=== PATIENT | female | born 1995 | race Caucasian/White ===

== ENCOUNTER 2021-06-30 13:54 | Inpatient (IN) ==
[2021-06-30] MEDS ORDERED: AMPICILLIN/SULBACTAM SOD 3,000 MG in 0.9 % SODIUM CHLORIDE 100 ML IV STA (17:18)
[2021-06-30] MEDS ORDERED: dexAMETHasone**PF** 10 MG/ML VIAL IV ONE (17:18)
[2021-06-30] MEDS ORDERED: KETOROLAC TROMETHAMINE 15 MG/ML VIAL IV ONE (17:21)
--- NOTE | 2021-06-30 17:21 | Emergency Department Note ---
Impression & Plan Ludwigs angina, Sublingual abscess ED Provider Note NAME: MELANIA [id number] MOO AGE: 25 SEX: F : 1995 ARRIVES VIA: Walk-In INFORMANT: Patient ED PROVIDER(S): Jose Pool DO CHIEF COMPLAINT: Swelling under tongue HPI: Patient is a 25-year-old female who presents to the ER for swelling under the tongue. This started in the past 24 hours. She notes she has had this multiple times before in the past and had multiple surgeries. She denies any headache or change in vision. No chest pain or shortness of breath. She has not eaten or drank since yesterday due to the pain. No fevers. No belly pain nausea vomiting or diarrhea. No chest pain or shortness of breath. No other exacerbating or remitting factors. ROS: See above HPI for pertinent positives & negatives. A total of 10 systems reviewed and were otherwise negative. PAST MEDICAL HISTORY:See Below PAST SURGICAL HISTORY:See Below FAMILY HISTORY:See Below SOCIAL HISTORY:See Below HOME MEDICATIONS:See Below ALLERGIES:See Below VITALS:See Below PHYSICAL EXAMINATION: GENERAL: Sitting up in bed, alert, well appearing, well nourished, no distress, non-toxic EYE EXAM: normal conjunctiva. OROPHARYNX: mucous membranes are moist. Firmness under the tongue with acute tenderness under the tongue with fullness. Tenderness over the anterior neck with fullness but no erythema. Skin is intact. NECK: supple, no nuchal rigidity, no adenopathy, non-tender LUNGS: Clear to auscultation. Normal chest wall mechanics HEART: no murmurs, S1 normal and S2 normal ABDOMEN: abdomen soft, non-tender, normo-active bowel sounds, no masses, no rebound or guarding. UPPER EXTREMITIES: upper extremities are grossly normal. LOWER EXTREMITIES: No pitting edema. NEURO EXAM: Normal sensorium, cranial nerves II-XII grossly intact, normal speech, no gross weakness of arms, no gross weakness of legs. MEDICAL DECISION MAKING: Patient is a 25-year-old female who presents the ER for swelling under her throat. IV was established blood work was obtained. Labs show mild to 11,000 no significant knee. BMP with elevated right. CT of the neck was performed and showed Rolando's angina with an abscess and swelling in the neck. ENT was called emergently. Patient was given IV Unasyn and steroids. She was updated bedside. Rapid Covid was obtained. Patient was seen and evaluated by both Dr. Castillo and Dr. Rowland at bedside. Patient was taken emergently to the OR. Did discuss with the hospitalist per ENTs request to admit to them following the OR for the [facility]'s. Triage Nursing notes reviewed. Limited review of prior medical records performed Vital Signs: reviewed and remarkable for no significant abnormalities Differential diagnosis: Viral syndrome, tonsillitis, streptococcal pharyngitis, mononucleosis, perito nsillar abscess, retropharyngeal abscess, otitis, pneumonia, influenza, as well as other pathologies. ER treatment provided: See below Diagnostics interpreted by me: ECG: none Cardiac Monitoring: An order was placed for continuous cardiac monitoring. The monitor shows a rate of 92 with sinus rhythm. Laboratory studies: As stated above and show below. Imaging studies: CT of the neck as discussed above Consultation(s): As discussed above Procedures: none Critical Care: I have personally spent 32 minutes of critical care time in the direct management of this patient. This includes bedside care, interpretation of diagnostic studies, and testing, discussion with consultants, patient, and family members, and other required patient management activities. This 32 minutes is in excess of all separately billable procedures. Past Med/Surg History Social History Smoking Status: Former smoker Preferred Language: Hungarian Feels Safe at Home: Yes Allergies Allergies Allergy/AdvReac Type Severity Reaction Status Date / Time No Known Allergies Allergy Unverified 06/30/21 17:33 Home Meds Home Medications Medication Instructions Recorded Confirmed nqecjoe-peotizhzwqvqv-smgsxdvt 250 2 tab PO DAILY 06/30/21 06/30/21 mg-250 mg-65 mg tablet (Excedrin Extra Strength) calcium polycarbophil 625 mg 625 mg PO BID 06/30/21 06/30/21 tablet (FiberCon) guanfacine 1 mg tablet,extended 1 mg PO HS 06/30/21 06/30/21 release 24 hr (Intuniv ER) levalbuterol tartrate 45 2 inh INHALATION QID PRN 06/30/21 06/30/21 mcg/actuation aerosol inhaler (Xopenex HFA) mirtazapine 15 mg tablet 15 mg PO HS 06/30/21 06/30/21 pantoprazole 40 mg tablet,delayed 40 mg PO DAILY 06/30/21 06/30/21 release sertraline 50 mg tablet 50 mg PO DAILY 06/30/21 06/30/21 tissue resp fact-shark ryan oil 1 ea [place] BID 06/30/21 06/30/21 rectal ointment (Hemorrhoidal) topiramate 50 mg tablet (Topamax) 50 mg PO BID 06/30/21 06/30/21 Results & Data (ED) Vital Signs Vital Signs - 24 hr 06/30/21 14:08 06/30/21 17:18 06/30/21 18:00 Temperature 36.4 C L Temperature Source Temporal Artery Scan Pulse Rate 96 H Pulse Rate [Left] 72 Pulse Rhythm Regular Pulse Rhythm [Left] Regular Pulse Strength Normal Pulse Strength [Left] Normal Respiratory Rate 20 18 Respiratory Effort / Characteristics Non-Labored Non-Labored Respiratory Depth Normal Normal Respiratory Pattern Regular Regular Blood Pressure [Right Arm] 121/88 Blood Pressure Mean [Right Arm] 99 Blood Pressure Position Sitting Blood Pressure Position [Right Arm] Lying Pulse Oximetry 99 99 99 Oxygen Delivery Method Room Air Room Air Room Air Sepsis Recent Fever Within 48 Hours No Sepsis New/Unexplained Change in Mental Status N/A Sepsis Action Taken by Nursing No Action Required 06/30/21 20:00 06/30/21 22:00 06/30/21 22:27 Temperature Temperature Source Pulse Rate Pulse Rate [Left] 100 H 101 H 97 H Pulse Rhythm Pulse Rhythm [Left] Regular Regular Regular Pulse Strength Pulse Strength [Left] Normal Normal Normal Respiratory Rate 18 17 19 Respiratory Effort / Characteristics Non-Labored Non-Labored Non-Labored Respiratory Depth Normal Normal Normal Respiratory Pattern Regular Regular Regular Blood Pressure [Right Arm] 125/92 118/74 126/74 Blood Pressure Mean [Right Arm] 103 88 91 Blood Pressure Position Blood Pressure Position [Right Arm] Lying Lying Lying Pulse Oximetry 99 99 99 Oxygen Delivery Method Room Air Room Air Room Air Sepsis Recent Fever Within 48 Hours Sepsis New/Unexplained Change in Mental Status Sepsis Action Taken by Nursing Laboratory Data Result diagrams: 06/30/21 Unknown 06/30/21 Unknown Lab Results 06/30/21 06/30/21 06/30/21 Range/Units 18:04 20:32 20:32 WBC (4.8-10.8) K/uL RBC (4.2-5.4) M/uL Hgb (12.0-16.0) g/dL POC Hgb 13.3 (12.0-16.0) g/dl Hct (37-47) % POC Hct 39 (37-47) % MCV (80-100) fL MCH (25-34) pg MCHC (32-36) g/dL RDW Std Deviation (36.4-46.3) fL RDW Coeff of Fany (11.5-14.5) % Plt Count (130-400) K/uL MPV (7.4-10.4) fL Immature Gran % (Auto) % Neut % (Auto) % Lymph % (Auto) % Bleckley % (Auto) % Eos % (Auto) % Baso % (Auto) % Neut # (Auto) (1.4-6.5) K/uL Lymph # (Auto) (1.2-3.4) K/uL Bleckley # (Auto) (0.11-0.59) K/uL Eos # (Auto) (0-0.5) K/uL Baso # (Auto) (0-0.2) K/uL Immature Gran # (Auto) (0.00-0.02) K/uL POC Sodium 139 (135-144) mmol/L Sodium (136-145) mmol/L POC Potassium 4.5 (3.3-5.0) mmol/L Potassium (3.5-5.1) mmol/L POC Chloride 106 (101-112) mmol/L Chloride (98-107) mmol/L Carbon Dioxide (21-32) mmol/L POC Total CO2 21 L (24-31) mmol/L Anion Gap (3-11) POC Anion Gap 18.0 (16-25) mmol/L POC BUN 14 (7-18) mg/dl BUN (7-18) mg/dl Creatinine (0.6-1.2) mg/dl POC Creatinine 0.6 (0.6-1.3) mg/dl Est Cr Clr Drug Dosing ml/min Est GFR ( Amer) ml/min Est GFR (Non-Af Amer) ml/min BUN/Creatinine Ratio (10-20) Glucose (70-99) mg/dl POC Glucose (other) 90 (70-99) mg/dl Calcium (8.5-10.1) mg/dl POC Ioniz Calcium Dana 1.26 (1.12-1.32) mmol/l COVID-19 Eval Order Covid19 at [facility] SARS-CoV-2 (PCR) NEGATIVE (Negative) 06/30/21 06/30/21 Range/Units Unknown Unknown WBC 11.74 H (4.8-10.8) K/uL RBC 4.39 (4.2-5.4) M/uL Hgb 13.1 (12.0-16.0) g/dL POC Hgb (12.0-16.0) g/dl Hct 39.2 (37-47) % POC Hct (37-47) % MCV 89.3 (80-100) fL MCH 29.8 (25-34) pg MCHC 33.4 (32-36) g/dL RDW Std Deviation 44.2 (36.4-46.3) fL RDW Coeff of Fany 13.4 (11.5-14.5) % Plt Count 301 (130-400) K/uL MPV 9.6 (7.4-10.4) fL Immature Gran % (Auto) 0.3 % Neut % (Auto) 55.9 % Lymph % (Auto) 35.2 % Bleckley % (Auto) 7.6 % Eos % (Auto) 0.8 % Baso % (Auto) 0.2 % Neut # (Auto) 6.58 H (1.4-6.5) K/uL Lymph # (Auto) 4.13 H (1.2-3.4) K/uL Bleckley # (Auto) 0.89 H (0.11-0.59) K/uL Eos # (Auto) 0.09 (0-0.5) K/uL Baso # (Auto) 0.02 (0-0.2) K/uL Immature Gran # (Auto) 0.03 H (0.00-0.02) K/uL POC Sodium (135-144) mmol/L Sodium 139 (136-145) mmol/L POC Potassium (3.3-5.0) mmol/L Potassium 4.4 (3.5-5.1) mmol/L POC Chloride (101-112) mmol/L Chloride 108 H (98-107) mmol/L Carbon Dioxide 25 (21-32) mmol/L POC Total CO2 (24-31) mmol/L Anion Gap 6.0 (3-11) POC Anion Gap (16-25) mmol/L POC BUN (7-18) mg/dl BUN 15 (7-18) mg/dl Creatinine 0.73 (0.6-1.2) mg/dl POC Creatinine (0.6-1.3) mg/dl Est Cr Clr Drug Dosing 140.8 ml/min Est GFR ( Amer) 133.6 ml/min Est GFR (Non-Af Amer) 115.3 ml/min BUN/Creatinine Ratio 20.1 H (10-20) Glucose 88 (70-99) mg/dl POC Glucose (other) (70-99) mg/dl Calcium 9.6 (8.5-10.1) mg/dl POC Ioniz Calcium Dana (1.12-1.32) mmol/l COVID-19 Eval Order SARS-CoV-2 (PCR) (Negative) Administered Medications Discontinued Medications Dexamethasone Sodium Phosphate (DexamethasonePf 10 Mg/Ml Vial) 10 mg IV NOW ONE Stop: 06/30/21 17:19 Last Admin: 06/30/21 18:04 Dose: 10 mg Documented by: [id number] Ampicillin Sodium/Sulbactam Sodium 3,000 mg/ Sodium Chloride 108 mls @ 200 mls/hr IV NOW STA; Protocol Stop: 06/30/21 17:50 Last Infusion: 06/30/21 18:56 Dose: 0 mls/hr Documented by: [id number] Admin: 06/30/21 18:03 Dose: 200 mls/hr Documented by: [id number] Ioversol (Optiray 320 100ml) 94 ml IV ONCE ONE Stop: 06/30/21 18:57 Last Admin: 06/30/21 18:56 Dose: 94 ml Documented by: [id number] Ketorolac Tromethamine (Ketorolac Tromethamine 15 Mg/Ml Vial) 15 mg IV NOW ONE Stop: 06/30/21 17:22 Last Admin: 06/30/21 18:04 Dose: 15 mg Documented by: [id number] Imaging Data Radiologist's Impression: Soft Tissue Neck CT 06/30/21 17:18 CT soft tissue neck w con Clinical Indication: MN ^LABS B4 ^swelling under tongue trouble swallowing. Technique: Axial CT images of the soft tissues of the neck were obtained following intravenous administration of 100 cc of Omnipaque 300. Automated dose lowering techniques and/or adjustment according to patient size were utilized for this exam. Comparison: None available at the time of this dictation. Findings: There is a midline hypodensity below the tongue measuring 19 x 9 x 17 centimeters with rim enhancement. Multiple enlarged lymph nodes are seen, largest measuring 12 mm in short axis on the left in the submandibular region, and 10 mm on the right, also in the submandibular region. A submental lymph node measures 7 mm. Prominent lymph nodes are noted in the cervical chain measuring up to 10 mm in short axis. The parotid glands, submandibular glands, and thyroid gland are unremarkable. The oropharynx, hypopharynx, larynx, and trachea are patent. Imaged portions of the brain parenchyma are unremarkable. The paranasal sinuses and mastoid air cells are normal in appearance. Impression: Findings are concerning for an abscess or developing abscess in the sublingual space (Anthony angina). Lymphadenopathy is seen which is likely reactive. ACT 112: Positive. There are findings on this exam that require communication between the performing entity and the patient following Patient Test Result Information Act ([place] Act 112) guidelines. Electronically signed by: Paul Dorman M.D. 06/30/2021 8:06 PM Discharge Plan Visit Data Chief Complaint: Infection Stated Complaint: SUBLINGUAL ABSCESS ED Provider: Jose Pool Discharge Problem: Ludwigs angina, Sublingual abscess
[2021-06-30 18:17] LABS: iSTAT Creatinine 0.6 mg/dl (0.6-1.3); iSTAT Hemoglobin 13.3 g/dl (12.0-16.0); iSTAT Ionized Calcium 1.26 mmol/l (1.12-1.32); iSTAT Potassium 4.5 mmol/L (3.3-5.0)
[2021-06-30 18:21] LABS: Basophils # (auto) 0.02 K/uL (0-0.2); Basophils % (auto) 0.2 %; Eosinophils # (auto) 0.09 K/uL (0-0.5); Eosinophils % (auto) 0.8 %; Hematocrit (blood only) 39.2 % (37-47); Hemoglobin 13.1 g/dL (12.0-16.0); Immature Granulocytes # (auto) 0.03 K/uL (0.00-0.02); Immature Granulocytes % (auto) 0.3 %; Lymphocytes # (auto) 4.13 K/uL (1.2-3.4); Lymphocytes % (auto) 35.2 %; Mean Corpuscular Hemoglobin 29.8 pg (25-34); Mean Corpuscular Hgb Conc 33.4 g/dL (32-36); Mean Corpuscular Volume 89.3 fL (80-100); Mean Platelet Volume 9.6 fL (7.4-10.4); Monocytes # (auto) 0.89 K/uL (0.11-0.59); Monocytes % (auto) 7.6 %; Neutrophils # (auto) 6.58 K/uL (1.4-6.5); Neutrophils % (auto) 55.9 %; Platelet Count 301 K/uL (130-400); RDW Coefficient of Variation 13.4 % (11.5-14.5); RDW Standard Deviation 44.2 fL (36.4-46.3); Red Blood Count 4.39 M/uL (4.2-5.4); White Blood Count 11.74 K/uL (4.8-10.8)
[2021-06-30 18:40] LABS: BUN Creatinine Ratio 20.1 (10-20); Calcium 9.6 mg/dl (8.5-10.1); Creatinine Clr Calc Pharmacy 140.8 ml/min; Est GFR (African American) 133.6 ml/min; Est GFR (Non-African American) 115.3 ml/min; Potassium 4.4 mmol/L (3.5-5.1)
[2021-06-30] MEDS ORDERED: OPTIRAY 320 100ml IV ONE (18:56)
--- NOTE | 2021-06-30 20:07 | CT Scan Report ---
CT soft tissue neck w con Clinical Indication: MN ^LABS B4 ^swelling under tongue trouble swallowing. Technique: Axial CT images of the soft tissues of the neck were obtained following intravenous admini stration of 100 cc of Omnipaque 300. Automated dose lowering techniques and/or adjustment according t o patient size were utilized for this exam. Comparison: None available at the time of this dictation. Findings: There is a midline hypodensity below the tongue measuring 19 x 9 x 17 centimeters with rim enhancemen t. Multiple enlarged lymph nodes are seen, largest measuring 12 mm in short axis on the left in the s ubmandibular region, and 10 mm on the right, also in the submandibular region. A submental lymph node measures 7 mm. Prominent lymph nodes are noted in the cervical chain measuring up to 10 mm in short axis. The parotid glands, submandibular glands, and thyroid gland are unremarkable. The oropharynx, hypopharynx, larynx, and trachea are patent. Imaged portions of the brain parenchyma are unremarkable. The paranasal sinuses and mastoid air cell s are normal in appearance. Impression: Findings are concerning for an abscess or developing abscess in the sublingual space (Anthony angina). Lymphadenopathy is seen which is likely reactive. ACT 112: Positive. There are findings on this exam that require communication between the performing entity and the patient following Patient Test Result Information Act ([place] Act 112) guidelines. Electronically signed by: Paul Dorman M.D. 06/30/2021 8:06 PM
--- NOTE | 2021-06-30 21:50 | Anesthesiology Consultation ---
Date of Service June 30, 2021 History Height/Weight Height: 4 ft 11 in Weight: 122.9 kg Allergies Allergy/AdvReac Type Severity Reaction Status Date / Time No Known Allergies Allergy Unverified 06/30/21 17:33 Medications Home Medications Medication Instructions Recorded Confirmed Last Taken psnzfna-aeuqizqyemrko-gjywssyp 250 2 tab PO DAILY 06/30/21 06/30/21 Unknown mg-250 mg-65 mg tablet (Excedrin Extra Strength) calcium polycarbophil 625 mg 625 mg PO BID 06/30/21 06/30/21 Unknown tablet (FiberCon) guanfacine 1 mg tablet,extended 1 mg PO HS 06/30/21 06/30/21 06/29/21 20:00 release 24 hr (Intuniv ER) levalbuterol tartrate 45 2 inh INHALATION QID PRN 06/30/21 06/30/21 Unknown mcg/actuation aerosol inhaler (Xopenex HFA) mirtazapine 15 mg tablet 15 mg PO HS 06/30/21 06/30/21 06/29/21 20:00 pantoprazole 40 mg tablet,delayed 40 mg PO DAILY 06/30/21 06/30/21 Unknown release sertraline 50 mg tablet 50 mg PO DAILY 06/30/21 06/30/21 06/30/21 08:00 tissue resp fact-shark ryan oil 1 ea [place] BID 06/30/21 06/30/21 Unknown rectal ointment (Hemorrhoidal) topiramate 50 mg tablet (Topamax) 50 mg PO BID 06/30/21 06/30/21 06/30/21 08:00 Past Surgical History per record - hx of prior oral surgery for mouth infections Social History Smoking Status: Former smoker Physical Exam Vital Signs Last Vital Signs Temp 36.4 C L 06/30/21 14:08 Pulse 100 H 06/30/21 20:00 Resp 18 06/30/21 20:00 BP 125/92 06/30/21 20:00 Pulse Ox 99 06/30/21 20:00 Testing Laboratory Results 06/30/21 Unknown 06/30/21 Unknown 06/30/21 18:04 POC Glucose (other) 90
--- NOTE | 2021-06-30 22:09 | ENT Consultation ---
Date of Consultation June 30, 2021 Assessment & Plan (1) Sublingual abscess: (2) Ludwigs angina: The patient has a history of previous recurrent sublingual abscesses now presenting with small sublingual abscess and early Anthony's angina. No airway compromise. -To OR for I+D, plan extraoral with possible intraoral approach. Will send OR cultures -Unasyn -Decadron 10mg Q8H x3 doses -OK for PO after OR -To be admitted to hospitalist service postoperatively History of Present Illness History of Present Illness 25yF h/o multiple sublingual abscesses requiring I+D x11 (both intra and extraoral) presenting with tenderness and swelling under tongue. Began yesterday, progressed today. Mild dysarthria, odynophagia. No voice change, dyspnea, stridor. Last episode was 04/2020. In ED stable on RA. WBC 12. CT neck per my read shows a small rim enhancing fluid collection in the midline sublingual space with likely reactive bilateral cervical adenopathy. Also small R submandibular stone PMH: migraine, GERD PSH: as above Meds: reviewed, see below All: NKDA FH: noncontributory SH: resides in longterm currently Allergies Allergy/AdvReac Type Severity Reaction Status Date / Time No Known Allergies Allergy Unverified 06/30/21 17:33 Home Medications Medication Instructions Recorded Confirmed Type pgnqdzo-ssxbytibthfca-jqmoxvke 250 2 tab PO DAILY 06/30/21 06/30/21 History mg-250 mg-65 mg tablet (Excedrin Extra Strength) calcium polycarbophil 625 mg 625 mg PO BID 06/30/21 06/30/21 History tablet (FiberCon) guanfacine 1 mg tablet,extended 1 mg PO HS 06/30/21 06/30/21 History release 24 hr (Intuniv ER) levalbuterol tartrate 45 2 inh INHALATION QID PRN 06/30/21 06/30/21 History mcg/actuation aerosol inhaler (Xopenex HFA) mirtazapine 15 mg tablet 15 mg PO HS 06/30/21 06/30/21 History pantoprazole 40 mg tablet,delayed 40 mg PO DAILY 06/30/21 06/30/21 History release sertraline 50 mg tablet 50 mg PO DAILY 06/30/21 06/30/21 History tissue resp fact-shark ryan oil 1 ea [place] BID 06/30/21 06/30/21 History rectal ointment (Hemorrhoidal) topiramate 50 mg tablet (Topamax) 50 mg PO BID 06/30/21 06/30/21 History Patient History Social History Smoking Status: Former smoker Preferred Language: Cymraes Feels Safe at Home: Yes Physical Exam Physical Exam: General: The patient is well-developed, well-nourished, and in no acute distress. Obese. On RA, SaO2 99% Head and Face: Skull: No obvious deformities Sinus tenderness: There is no tenderness to palpation of the sinuses. Salivary glands: The parotid and submandibular glands are normal in appearance and there are no masses on palpation. Facial strength: Facial motion is symmetric and without weakness. Eyes: Eyelids: There is no periorbital edema. Conjunctiva: There is no conjunctival erythema. Pupils: The pupils are equal, round, and reactive to light. Extraocular muscles: Extraocular movement is normal. Nystagmus: There is no nystagmus. Ears: Right auricle: The pinna is normally formed without skin lesion or mass. Left auricle: The pinna is normally formed without skin lesion or mass. Right EAC: Cerumen. There is no external auditory canal erythema, edema, lesion, or mass. Left EAC: Cerumen. There is no external auditory canal erythema, edema, lesion, or mass. Right TM/middle ear: Visualized TM is intact without perforation, flat, and translucent. The middle ear space is clear Left TM/middle ear: Visualized TM is intact without perforation, flat, and translucent. The middle ear space is clear Hearing: Clinical speech medical receptionist biller threshold testing is grossly normal. Nose: External: There is no gross external deformity, tenderness, or skin lesion or mass. Mucosa: There is no nasal mucosal edema, inflammation, lesion, or mass. Septum: The nasal septum is midline. Nasal cavity: There is no inferior turbinate hypertrophy, edema, inflammation, or mass bilaterally. The inferior meatus and middle meatus were clear bilaterally without mass, lesion, mucopurulence, or polyposis. Oral cavity/Oropharynx: Lips: There are no lip lesions or masses. Oral cavity: Firm mild induration of the midline FOM, tender to palpation without significant erythema. Mild limitation of tongue ROM. Able to visualize oropharynx. No obvious dental abscess. No trismus. Oropharynx: There is no inflammation, lesion, or mass involving the palatine tonsils or posterior pharyngeal wall. Neck: General: Well healed midline submandibular incision There are no visible or palpable masses involving the neck. The trachea is midline. Lymph nodes: There is no visible or palpable neck lymphadenopathy. Thyroid: There is no visible or palpable thyroid enlargement or nodularity. Respiratory/Pulmonary: There is no stertor or stridor. There is normal respiratory effort without acute distress. Cardiovascular: There is no visible extremity edema. Skin: There are no visible lesions or masses involving the skin of the head and neck region. Neurological: Cranial nerves: Cranial nerve II is noted to be intact by grossly normal visual acuity. Cranial nerves III, IV, and are noted to be intact by normal extraocular movements. Cranial nerve VII is noted to be intact by symmetric and normal facial movement. Cranial nerve VIII is noted to be intact by a relatively normal clinical speech medical receptionist biller threshold. Cranial nerve IX is noted to be intact by an intact gag reflex and normal palatal movement. Cranial nerve X is noted to be intact by a normal voice. Cranial nerve XI is noted to be intact by normal shoulder and head movement. Cranial nerve XII is noted to be intact by normal symmetric tongue movement. Vestibular system: There is no spontaneous or gaze evoked nystagmus. Psychiatric: Mental status: The patient is awake and alert. Mood/affect: The patient has a normal mood and affect. Procedure: Flexible fiberoptic laryngoscopy Indication: Anthony's angina Details: Following the topical application of afrin and lidocaine, the flexible laryngoscope was inserted into the nasal cavity. The septum, turbinates, and nasal mucosa were normal. The nasopharynx was normal. The palatine tonsils were normal bilaterally. The base of tongue and vallecula were normal. The epiglottis, bilateral arytenoids, and bilateral aryepiglottic folds, and bilateral false vocal folds were normal. The true vocal folds were normal without masses or lesions. There was normal mobility of the true vocal folds bilaterally. The bilateral pyriform sinuses and postcricoid space was normal. There was no pooling of secretions. No aspiration or penetration was visualized. The patient tolerated the procedure well. Results & Data ([facility]) Vital Signs (Past 12 Hours) Vital Signs Temp Pulse Pulse Resp BP Pulse Ox 06/30/21 20:00 100 H 18 125/92 99 06/30/21 18:00 72 18 121/88 99 06/30/21 17:18 99 06/30/21 14:08 36.4 C L 96 H 20 99 PG Care Time/CCT Total # of Minutes Spent Total Time Spent with Patient: Total time spent is greater than 50% in coordination of care (as documented) at patient's floor/unit and/or counseling patient: Coding Level of Care Code 13160 Office/OBS Consult Lvl 4 (25 - SIGNIFICANT, SEPARATELY IDENTIFIABLE ) Diagnoses Sublingual abscess K12.2 Ludwigs angina K12.2 CPT Codes LARYNGOSCOPY DIAGNOSTIC FLEXIBLE - 56497 ([id number])
[2021-06-30] MEDS ORDERED: ONDANSETRON INJ 2 MG/ML 2 ML VIAL ONE (22:11)
[2021-06-30] MEDS ORDERED: DEXAMETHASONE SOD INJ 4 MG/ML VIAL ONE (22:11)
[2021-06-30] MEDS ORDERED: LIDOCAINE 2% 2 ML VIAL/AMP(20MG/ML) INFIL ONE (22:11)
[2021-06-30] MEDS ORDERED: PROPOFOL IV EMULSION 10 MG/ML 20 ML VIAL IV ONE (22:11)
[2021-06-30] MEDS ORDERED: SUCCINYLCHOLINE 100MG/5ML SYR IV ONE (22:11)
[2021-06-30] MEDS ORDERED: ROCURONIUM BROMIDE 10 MG/ML 5 ML VIAL IV ONE ×4 (22:11→23:22)
[2021-06-30] MEDS ORDERED: fentaNYL citrate 100 MCG/2 ML VIAL ONE ×3 (22:12→23:56)
--- NOTE | 2021-06-30 22:15 | Anesthesiology Consultation ---
Date of Service June 30, 2021 Assessment & Plan (1) Encounter for pre-operative examination: Chart Review Chart Review: Acceptable Risk for Surgery and Patient NOT seen in Pre Admission Testing Consults Requested none ASA ASA3 Proposed Anesthesia Anesthesia Type: General Risk / Benefits Reviewed With: PT / POA / Parent / Guardian, Accepts Plan and Informed Consent Obtained Additional Notes urine HCG negative by ED nursing report - nurse to enter in computer History Surgery Operation Date: 06/30/21 22:00 Proposed Procedures p Irrigation and Debridement of Submandibular Abscess - Nadeem Castillo MD Height/Weight Height: 4 ft 11 in Weight: 122.9 kg Allergies Allergy/AdvReac Type Severity Reaction Status Date / Time No Known Allergies Allergy Unverified 06/30/21 17:33 Medications Home Medications Medication Instructions Recorded Confirmed Last Taken lpcvryd-qswwvebyzkkpe-sqqaigqt 250 2 tab PO DAILY 06/30/21 06/30/21 Unknown mg-250 mg-65 mg tablet (Excedrin Extra Strength) calcium polycarbophil 625 mg 625 mg PO BID 06/30/21 06/30/21 Unknown tablet (FiberCon) guanfacine 1 mg tablet,extended 1 mg PO HS 06/30/21 06/30/21 06/29/21 20:00 release 24 hr (Intuniv ER) levalbuterol tartrate 45 2 inh INHALATION QID PRN 06/30/21 06/30/21 Unknown mcg/actuation aerosol inhaler (Xopenex HFA) mirtazapine 15 mg tablet 15 mg PO HS 06/30/21 06/30/21 06/29/21 20:00 pantoprazole 40 mg tablet,delayed 40 mg PO DAILY 06/30/21 06/30/21 Unknown release sertraline 50 mg tablet 50 mg PO DAILY 06/30/21 06/30/21 06/30/21 08:00 tissue resp fact-shark ryan oil 1 ea [place] BID 06/30/21 06/30/21 Unknown rectal ointment (Hemorrhoidal) topiramate 50 mg tablet (Topamax) 50 mg PO BID 06/30/21 06/30/21 06/30/21 08:00 NPO Date Last Intake of Fluids: 06/29/21 Time Last Intake of Fluids: 19:00 Date Last Intake of Solids: 06/29/21 Time Last Intake of Solids: 19:00 Past Medical History asthma gerd migraines depression anxiety Exercise / Class Metabolic Activity II 4-5 Yardwork/Stairs/Walk up hill Negative for chest pain or shortness of breath. Past Surgical History hx of x 2 hx of oral surgery Past Anesthesia History No Hx of Anesthesia Complications History of PONV No Hx of PONV and No Hx of Motion Sickness Social History Smoking Status: Former smoker Review of Systems Currently mild heart burn Problems swallowing, denies problems breathing Physical Exam Vital Signs Last Vital Signs Temp 36.4 C L 06/30/21 14:08 Pulse 101 H 06/30/21 22:00 Resp 17 06/30/21 22:00 BP 118/74 06/30/21 22:00 Pulse Ox 99 06/30/21 22:00 Constitutional + morbidly obese ENMT Mouth: + small oral opening; no TMJ abnormality Thyromental Distance: > or= 3.5 Finger Breadths Mallampati Class: III Neck normal visual inspection and + limited neck extension (due to pain) Respiratory normal respiratory effort Auscultation: lungs clear to auscultation bilaterally Cardiovascular Rate/Rhythm: regular rate and regular rhythm Heart Sounds: no murmur Neurologic moves all extremities Psychiatric Orientation: alert and oriented x 3 Testing Laboratory Results 06/30/21 Unknown 06/30/21 Unknown 06/30/21 18:04 POC Glucose (other) 90
--- NOTE | 2021-06-30 22:32 | History & Physical Report ---
Date of Service June 30, 2021 Assessment & Plan (1) Sublingual abscess: Plan: 25 yo F w/ pMHx. of Asthma and Ludwigs angina presents with swelling of the sublingual area. Sublingual abscess CT neck w/ finding of abscess in the submandibular space along with reactive lymphadenopathy ENT consulted and took the patient to the OR for drainage - admitted for observation to PCU - MIVF X2L - Unasyn 3g Q6H - Morphine for pain - Dexamethasone 10mg Q8H X3 doses for swelling - continuous pulse oximetry - AM CBC Code: full Diet: NPO for now DVT: SCDs Plan: Patient seen and examined, chart reviewed, case discussed with Dr. Matt and I agree with his assessment and plan No airway compromise. Patient nontoxic To OR for drain placement will continue IV antibiotics, pain control, clinical monitoring remainder of plan as above History of Present Illness Chief Complaint: tongue swelling Primary Care Provider: JENNA Blanca Rodriguez is a 25-year-old female here with a past medical history of Ludwigs angina and Asthma who is presenting with swelling under her jaw and tongue. This has happened several times previously starting when she was 12 years old with 10 prior surgeries for this. She feels that this is not as bad as it has been in the past because she had it evaluated sooner than she typically does. She noted that it started two days ago as some pain under her chin that she thought might be a developing cold. She then had pain and swelling yesterday that progressively worsened. She currently has 9/10 after getting Toradol in the ER. She is not having trouble breathing or drooling. She has no known triggers and had no recent dental infection or teeth that were bothering her. Allergies Allergy/AdvReac Type Severity Reaction Status Date / Time No Known Allergies Allergy Unverified 06/30/21 17:33 Home Medications Medication Instructions Recorded Confirmed Type jxopkyd-cvbgbvyxvzkbg-kdbofluf 250 2 tab PO DAILY 06/30/21 06/30/21 History mg-250 mg-65 mg tablet (Excedrin Extra Strength) calcium polycarbophil 625 mg 625 mg PO BID 06/30/21 06/30/21 History tablet (FiberCon) guanfacine 1 mg tablet,extended 1 mg PO HS 06/30/21 06/30/21 History release 24 hr (Intuniv ER) levalbuterol tartrate 45 2 inh INHALATION QID PRN 06/30/21 06/30/21 History mcg/actuation aerosol inhaler (Xopenex HFA) mirtazapine 15 mg tablet 15 mg PO HS 06/30/21 06/30/21 History pantoprazole 40 mg tablet,delayed 40 mg PO DAILY 06/30/21 06/30/21 History release sertraline 50 mg tablet 50 mg PO DAILY 06/30/21 06/30/21 History tissue resp fact-shark ryan oil 1 ea [place] BID 06/30/21 06/30/21 History rectal ointment (Hemorrhoidal) topiramate 50 mg tablet (Topamax) 50 mg PO BID 06/30/21 06/30/21 History Past Med/Surg History Social History Smoking Status: Former smoker Second Hand Exposure: No; Do You Dip or Chew Tobacco: No; Tobacco Cessation Education Requested by Patient: No Hx Alcohol Use: Yes Alcohol type: wine Hx Substance Use: Yes Last Used Substance Other:: Oct 14 2018 Preferred Language: [place] Market Consultant Required: No Beliefs That Will Affect Care: None Current Living Situation: Other Current Living Situation Comment: [facility] Other Information That Helps Us Care for You: No Feels Safe at Home: Yes Assistive Devices: None Review of Systems Review of Systems: Constitutional: denies fevers, chills, nausea, vomiting, fatigue, generalized weakness, diaphoresis, nigh sweats, weight loss Head: denies trauma, LOC, confusion, lightheadedness, vision changes Neurologic: denies syncope admits slurring speech ENT: denies rhinorrhea, stuffiness, sneezing Cardiac: denies chest pain, palpitations Pulm.: denies cough, shortness of breath, trouble breathing GI: denies diarrhea, constipation, bleeding, changes in the bowel frequency : denies urgency, frequency, dysuria Physical Exam Constitutional: well developed and well nourished; no acute distress Eyes: PERRL, conjunctivae normal, anicteric sclerae ENMT: - tongue elevated, posterior oropharynx crowding - uvula midline - missing teeth, no swelling or redness of the gums Neck: + thick neck - tender and swollen in the midline submandibular area Respiratory: normal respiratory effort, lungs clear to auscultation Cardiovascular: RRR, no murmur, no edema Gastrointestinal (Abdomen): normal bowel sounds, soft, nontender, no hepatosplenomegaly Musculoskeletal: no cyanosis or clubbing, extremities motor strength 5/5 Skin: no rashes, warm and dry Neurologic: no focal motor deficits Psychiatric: A+Ox3, euthymic affect Results & Data Results & Data ([facility]) Vital Signs (Past 12 Hours) Vital Signs Temp Pulse Pulse Resp BP Pulse Ox 06/30/21 22:00 101 H 17 118/74 99 06/30/21 20:00 100 H 18 125/92 99 06/30/21 18:00 72 18 121/88 99 06/30/21 17:18 99 06/30/21 14:08 36.4 C L 96 H 20 99 Code Status & VTE Plan VTE Prophylaxis Plan VTE Prophylaxis will be ordered: Yes
[2021-06-30] MEDS ORDERED: MIDAZOLAM HCL 1 MG/ML 2ML VIAL ONE (22:48)
[2021-06-30] MEDS ORDERED: PROMETHAZINE HCL 12.5 MG in SODIUM CHLORIDE 0.9% 50 ML IV PRN (22:48)
[2021-06-30] MEDS ORDERED: ONDANSETRON INJ 2 MG/ML 2 ML VIAL IV PRN (22:48)
[2021-06-30] MEDS ORDERED: fentaNYL citrate 100 MCG/2 ML VIAL IV PRN (22:48)
[2021-06-30] MEDS ORDERED: ATROPINE SULFATE 0.1 MG/ML 10ML SYR IV PRN (22:48)
[2021-06-30] MEDS ORDERED: ePHEDrine sulfate 50 MG/ML AMP IV PRN (22:48)
[2021-06-30] MEDS ORDERED: SODIUM CHLORIDE 0.9% INJ 10 ML VIAL ONE (22:56)
--- NOTE | 2021-06-30 23:48 | Post Operative Brief Note ---
PG Immediate Post Op with CF Date of Surgery June 30, 2021 Pre & Post Diagnosis Operation Date: 06/30/21 22:00 Pre-Op Diagnosis: Sublingual abscess Post-Op Diagnosis: Sublingual abscess I identified the patient and participated in the time-out.: Yes Procedure Operation Date: 06/30/21 22:00 Actual Procedures p Irrigation and Debridement of Sublingual Abscess - Nadeem Castillo MD Surgeon Nadeem Castillo MD Clinical Nurse Educator Dr. Sherice Rowland Estimated Blood Loss 10 Findings See Below Midline sublingual abscess, I+D. Culture sent. Iodoform packing placed Specimens Specimen Description: Microbiology #1- Sublingual abscess
[2021-06-30] MEDS ORDERED: GLYCOPYRROLATE 0.2 MG/ML VIAL ONE ×2 (23:54)
[2021-06-30] MEDS ORDERED: NEOSTIGMINE METHYLSULFATE 1 MG/ML 10ML VIAL ONE (23:54)
[2021-06-30] MEDS ORDERED: ALBUTEROL HFA INHALER 8.5 GM ONE (23:54)
[2021-07-01] MEDS ORDERED: diphenhydrAMINE 50 MG/ML VIAL IV STA (00:12)
[2021-07-01] MEDS ORDERED: diphenhydrAMINE 50 MG/ML VIAL ONE (00:15)
--- NOTE | 2021-07-01 00:32 | Operative Report (OR) ---
DATE OF SERVICE: 06/30/2021. PREOPERATIVE DIAGNOSIS: Midline sublingual abscess. POSTOPERATIVE DIAGNOSIS: Midline sublingual abscess. PROCEDURE: Incision and drainage of midline sublingual abscess. SURGEON: Nadeem Castillo MD. DIRECTOR MEDICAID: Sherice Rowland MD. ANESTHESIA: General, orotracheal. ESTIMATED BLOOD LOSS: 10 mL. INTRAOPERATIVE FINDINGS: Purulent drainage from midline abscess, sent for culture. SPECIMENS: Sublingual abscess, culture. COMPLICATIONS: None. DRAINS: Iodoform packing. INDICATIONS FOR THE PROCEDURE: The patient is a 25-year-old female with a history of multiple previo us sublingual abscesses requiring multiple previous drainage procedures who reported increasing swell ing and pain under her tongue x1 day. She was seen in the Emergency Room and a CT neck with contrast showed a small sublingual abscess with surrounding inflammation. She did clinically have a mild Misha wig's angina. Flexible laryngoscopy showed no airway involvement. It was recommended that she under go incision and drainage of the abscess in the operating room. The risks and benefits of the procedu re were discussed in detail, and the patient elected to proceed. Informed consent was obtained. A pr eprocedure COVID test was negative. DESCRIPTION OF PROCEDURE: The patient was identified in the preoperative holding area and brought ba ck to the operating room. She was placed supine on the operating room table. After the successful i nduction of general orotracheal anesthesia by the Anesthesia team, the patient was prepped in the usu al fashion for incision and drainage of a sublingual abscess. A surgical timeout was performed. The neck was prepped with Betadine. A previous submandibular midline scar was noted. An 18-gauge spina l needle was used to decompress the abscess. Purulent drainage was encountered and was sent for cult ure. The needle was left in place and an incision was carried out through her previous incision site , approximately 3 cm. Blunt dissection was carried out through the subcutaneous tissues and the mylo hyoid. The needle was followed along her previous scar tract and the abscess cavity was entered with a hemostat. Purulent drainage was expressed. All loculations were broken. The abscess cavity was then irrigated with copious saline and suctioned clear. Adequate hemostasis was noted. Iodoform pac josue was placed into the abscess cavity and the surgical tract. She was then turned over to the [facility] team and awakened without difficulty. Her neck was dressed with dry sterile gauze. She was t ransferred to the PACU in good condition. I was present and performed the entire procedure myself wi th the assistance of Dr. Rowland. Job ID: [id number]
[2021-07-01] MEDS ORDERED: HYDROmorphone INJ 2 MG/ML SYR/VIAL IV PRN (00:37)
[2021-07-01] MEDS ORDERED: HYDROmorphone INJ 1 MG/ML SYRINGE ONE (00:41)
--- NOTE | 2021-07-01 01:26 | Anesthesiology Progress Note ---
Date of Service July 01, 2021 Anesthesia Post Procedure Vital Signs Vital Signs: Temp Pulse Pulse Pulse Resp BP BP 07/01/21 01:20 80 19 119/86 07/01/21 01:10 79 17 107/82 07/01/21 01:00 36.7 C 72 16 113/71 07/01/21 00:50 72 18 118/81 07/01/21 00:40 98 H 20 131/89 07/01/21 00:30 64 16 135/79 07/01/21 00:20 84 22 141/88 H 07/01/21 00:10 106 H 20 127/87 07/01/21 00:01 36.9 C 108 H 20 142/101 H 06/30/21 22:27 97 H 19 126/74 06/30/21 22:00 101 H 17 118/74 06/30/21 20:00 100 H 18 125/92 06/30/21 18:00 72 18 121/88 06/30/21 17:18 06/30/21 14:08 36.4 C L 96 H 20 Pulse Ox 07/01/21 01:20 95 07/01/21 01:10 99 07/01/21 01:00 97 07/01/21 00:50 97 07/01/21 00:40 94 07/01/21 00:30 97 07/01/21 00:20 98 07/01/21 00:10 99 07/01/21 00:01 97 06/30/21 22:27 99 06/30/21 22:00 99 06/30/21 20:00 99 06/30/21 18:00 99 06/30/21 17:18 99 06/30/21 14:08 99 Pain Intensity Neck: Pain Intensity: 6 Transfer of Care Handoff Completed per policy Notes Mental Status: alert / awake / arousable and participated in evaluation Patient Amnestic to Procedure: Yes Nausea / Vomiting: adequately controlled Pain: adequately controlled Airway Patency, RR, SpO2: stable & adequate BP & HR: stable & adequate Hydration State: stable & adequate Anesthetic Complications: no major complications apparent and Pt Satisfied with anesthetic care
[2021-07-01] MEDS ORDERED: LEVALBUTEROL TARTRATE 15 GM HFA.AER.AD INH PRN (02:13)
[2021-07-01] MEDS ORDERED: MoRPHine SULFATE 2 MG/ML CARP IV PRN (02:13)
[2021-07-01] MEDS ORDERED: POLYETHYLENE (MIRALAX) 17 GM PACK PO PRN (02:13)
[2021-07-01] MEDS: SODIUM CHLORIDE 0.9% 1000ML 1,000 ML IV SCH ×2 (02:25→10:17)
[2021-07-01] MEDS: MoRPHine SULFATE 4 MG/ML 1 ML CARP\\VIAL IV PRN ×6 (02:55→22:16)
[2021-07-01] MEDS: AMPICILLIN/SULBACTAM SOD 3,000 MG in 0.9 % SODIUM CHLORIDE 100 ML IV SCH ×3 (05:20→16:51)
[2021-07-01] MEDS: dexAMETHasone 10 MG in SYRINGE 0 ML IV SCH ×2 (06:19→13:42)
--- NOTE | 2021-07-01 06:20 | Billing Data ---
Date of Service June 30, 2021 Coding Level of Care Code INT OBSERVATION CARE 50M LVL 2
--- NOTE | 2021-07-01 07:41 | Ears,Nose,Throat Progress Note ---
Date of Service July 01, 2021 Assessment & Plan (1) Ludwigs angina: (2) Sublingual abscess: Plan: 25yF s/p I+D sublingual abscess, early Anthony's angina. Doing well postoperatively, healing as expected. Iodoform gauze backed out 1cm. Awaiting cultures. No respiratory concerns -OK for soft diet from ENT standpoint -Continue unasyn, f/u cultures -Decadron 10mg Q8h x3 doses -Continuous pulse ox -Will ultimately need removal of underlying likely cystic lesion as an outpatient once infection resolved -Expect inpatient stay over the weekend given [facility] at her group home -Will continue to follow Admission and Anticipated Discharge Date Admission Date: June 30, 2021 Subjective NARGIS o/n. Feeling improved. Pain controlled. Thirsty. No respiratory issues. Physical Exam Physical Exam: WNWD, NAD Improved ROM of tongue and dysarthria FOM with ongoing mild induration, mildly firm wihtout fluctuance Incision intact with iodoform gauze, backed out 1 cm Minimal ss drainage Neck softer Results & Data ([facility]) Vital Signs (Past 12 Hours) Vital Signs Temp Pulse Pulse Pulse Resp BP BP 07/01/21 03:51 36.7 C 81 16 105/72 07/01/21 02:13 37.2 C 91 H 20 128/64 07/01/21 02:00 102 H 07/01/21 01:30 86 20 110/81 07/01/21 01:20 80 19 119/86 07/01/21 01:10 79 17 107/82 07/01/21 01:00 36.7 C 72 16 113/71 07/01/21 00:50 72 18 118/81 07/01/21 00:40 98 H 20 131/89 07/01/21 00:30 64 16 135/79 07/01/21 00:20 84 22 141/88 H 07/01/21 00:10 106 H 20 127/87 07/01/21 00:01 36.9 C 108 H 20 142/101 H 06/30/21 22:27 97 H 19 126/74 06/30/21 22:00 101 H 17 118/74 06/30/21 20:00 100 H 18 125/92 Pulse Ox 07/01/21 03:51 93 07/01/21 02:13 97 07/01/21 02:00 07/01/21 01:30 96 07/01/21 01:20 95 07/01/21 01:10 99 07/01/21 01:00 97 07/01/21 00:50 97 07/01/21 00:40 94 07/01/21 00:30 97 07/01/21 00:20 98 07/01/21 00:10 99 07/01/21 00:01 97 06/30/21 22:27 99 06/30/21 22:00 99 06/30/21 20:00 99 PG Care Time/CCT Total # of Minutes Spent Total Time Spent with Patient: Total time spent is greater than 50% in coordination of care (as documented) at patient's floor/unit and/or counseling patient: Coding Level of Care Code 43547 Subseq Hosp Care Lvl 2 Diagnoses Ludwigs angina K12.2 Sublingual abscess K12.2
[2021-07-01 07:48] LABS: Hemoglobin 12.8 g/dL (12.0-16.0); Immature Granulocytes # (auto) 0.01 K/uL (0.00-0.02); Immature Granulocytes % (auto) 0.1 %; Lymphocytes # (auto) 1.33 K/uL (1.2-3.4); Lymphocytes % (auto) 14.1 %; Mean Corpuscular Hemoglobin 30.1 pg (25-34); Mean Corpuscular Hgb Conc 32.8 g/dL (32-36); Mean Corpuscular Volume 91.8 fL (80-100); Mean Platelet Volume 9.7 fL (7.4-10.4); Monocytes # (auto) 0.21 K/uL (0.11-0.59); Monocytes % (auto) 2.2 %; Neutrophils % (auto) 83.6 %; Platelet Count 324 K/uL (130-400); RDW Coefficient of Variation 13.5 % (11.5-14.5); RDW Standard Deviation 44.9 fL (36.4-46.3); Red Blood Count 4.25 M/uL (4.2-5.4); White Blood Count 9.45 K/uL (4.8-10.8)
[2021-07-01] MEDS: TOPIRAMATE 50 MG TAB PO SCH ×2 (08:14→21:17)
[2021-07-01] MEDS: SERTRALINE HCL 50 MG TABLET PO SCH (08:15)
[2021-07-01] MEDS: PANTOprazole 40 MG TAB PO SCH (08:15)
--- NOTE | 2021-07-01 08:16 | Hospitalist Progress Note ---
Date of Service July 01, 2021 Assessment & Plan (1) Sublingual abscess: Plan: 25 yo F w/ pMHx. of asthma, GERD, migraines, and Anthony's angina presents with swelling of the sublingual area. Sublingual abscess - s/p I+D by ENT - CT neck w/ finding of abscess in the submandibular space along with reactive lymphadenopathy - ENT consulted - performed I+D - Continue Unasyn, Dexamethasone x3 doses - Ok for soft diet -Will ultimately need removal of underlying likely cystic lesion as an outpatient once infection resolved -Expect inpatient stay over the weekend given [facility] her [facility] - Continue Unasyn 3g Q6H - Continue Morphine prn and APAP prn for pain - Dexamethasone 10mg Q8H X3 doses for swelling -- completed - continuous pulse oximetry - AM CBC Migraines - Chronic issue, no current complaints - Continue topiramate 50mg PO BID Asthma - Levalbuterol PRN GERD - Continue Pantoprazole Depression - Continue mirtazapine, sertraline Code: FULL CODE Diet: Soft diet DVT: SCDs Dispo: Telemetry, consider downgrade if continues stable tomorrow, likely DC after weekend as above Admission and Anticipated Discharge Date Admission Date: June 30, 2021 Supervising Physician Co-Signing Physician Notes Resident Physician Supervision Note: I independently interviewed and examined the patient and verified the sánchez history and physical, reviewed labs and image studies and agree with resident Dr. Lucas findings and care plan. Subjective No acute events overnight. Patient seen at bedside. Reporting reasonably well- controlled pain. Denies other complaints. Did have a few questions regarding possible future ENT intervention, which I recommended she discuss with ENT team. Review of Systems Review of Systems: Denies fever, chills, n/v, SOB, difficulty breathing, cough. Physical Exam Physical Exam: GENERAL: A&Ox3. NAD. HEENT: EOMI. Moist mucous membranes. Surgical packing in place. Minimal drainage. Neck: Covered with gauze that is c/d/i CHEST/LUNGS: CTAB A/P. No crackles, wheezes, rales, rhonchi. HEART: RRR. No m/g/r. No carotid bruits. SKIN: Warm and dry. No rashes or lesions. PSYCHIATRIC: Euthymic affect, no SI, no pressured speech, no hallucinations NEUROLOGIC: No FND. CN II-XII grossly intact. Results & Data Results & Data ([facility]) Vital Signs (Past 12 Hours) Vital Signs Temp Pulse Pulse Pulse Resp BP BP 07/01/21 03:51 36.7 C 81 16 105/72 07/01/21 02:13 37.2 C 91 H 20 128/64 07/01/21 02:00 102 H 07/01/21 01:30 86 20 110/81 07/01/21 01:20 80 19 119/86 07/01/21 01:10 79 17 107/82 07/01/21 01:00 36.7 C 72 16 113/71 07/01/21 00:50 72 18 118/81 07/01/21 00:40 98 H 20 131/89 07/01/21 00:30 64 16 135/79 07/01/21 00:20 84 22 141/88 H 07/01/21 00:10 106 H 20 127/87 07/01/21 00:01 36.9 C 108 H 20 142/101 H 06/30/21 22:27 97 H 19 126/74 06/30/21 22:00 101 H 17 118/74 Pulse Ox 07/01/21 03:51 93 07/01/21 02:13 97 07/01/21 02:00 07/01/21 01:30 96 07/01/21 01:20 95 07/01/21 01:10 99 07/01/21 01:00 97 07/01/21 00:50 97 07/01/21 00:40 94 07/01/21 00:30 97 07/01/21 00:20 98 07/01/21 00:10 99 07/01/21 00:01 97 06/30/21 22:27 99 06/30/21 22:00 99 Resident Activity Tracking Resident Involvement: Resident Care Provided Care Provided: Adult [facility]
[2021-07-01 08:23] LABS: BUN Creatinine Ratio 16.6 (10-20); Creatinine Clr Calc Pharmacy 139.8 ml/min; Est GFR (African American) 131.4 ml/min; Est GFR (Non-African American) 113.4 ml/min; Potassium 4.1 mmol/L (3.5-5.1)
--- NOTE | 2021-07-01 08:46 | Medical Student Progress Note ---
Date of Service July 01, 2021 Assessment & Plan (1) Ludwigs angina: (2) Sublingual abscess: Plan: Summary: 25 y/o female with a h/o of oral abscesses with CC of difficulty swallowing, chewing and speaking as a result of an oral abscess. ENT performed I&D for a midline sublingual abscess on 07/01/21. Pending culture of the abscess. ENT offers Dx of Anthony Angina. #1 Oral Abscess S/P I&D On physical exam the patient is doing well post-surgery. She is able to eat. Does not report any issues with breathing, chewing and speaking. Pulse Ox on room air 96%. - Continue with Ampicillin/Sulbactam - Continue with Morphine PRN - Continue Dexamethasone 10mg q8H for 3 doses (2/3 doses given) #2 Asthma - Levalbuterol PRN #3 GI - Continue Pantoprazole #4 HTN - Continue Guanfacine #5 Psych Medications - Continue Mirtazapine, Sertraline, Topirimate DVT Prophylaxis: SCD Knee and Thigh FEN: NSS @ 125 mls/hr IV Diet: per ENT, Soft Foods Only Dispo: per ENT, admit Pt through the weekend for observation. Code: Full Code Admission and Anticipated Discharge Date Admission Date: June 30, 2021 Subjective 25 y/o female with a h/o of asthma and oral infections, has a CC of difficulty chewing, talking and speaking from an infection/abscess to her mouth. She states that 3 days ago she noticed an abscess underneath her tongue. She waited two days to see if the abscess would resolve on it's own. But states the abscess increased in size. She became concerned that without Tx the infection might impede her ability to breathe. She offers that she has had at least 11 mouth infections in the past. Some of the previous mouth infections have gotten large enough where she had trouble breathing. With this latest episode she reports problems swallowing, eating and chewing but no issues with breathing. She has not been able to eat in the last 2 days. She did not notice any blood or pus in her mouth. She rated the pain in her mouth as a 9/10 at its worst. Today she rates the pain as a 6/10. She states no fevers, chills or night sweats. She states no irregular heart beats. She states no labored breathing. Bowel movements are normal. No pain with urination. No blood in the urine. She states no loss of sensation and strength in her extremities. She has not been able to smoke or drink EtOH in the last year because she is in [facility]. She states she is constantly stressed. ENT performed I&D midline sublingual abscess the morning of 07/01/21, no complications. Cultures of the abscess submitted. They provided Dx of Anthony Angina. Physical Exam Constitutional: Pleasant affect. Responding appropriately to questions. NAD. Eyes: No visible discharge from her eyes. ENMT: No signs of pus or blood to the iin her mouth. No pus or signs of infection to the incision in her throat. Neck: No signs of erythema, ecchymosis or lacerations to her neck. Respiratory: Lungs clear to auscultation BL. No wheezing, rales. No labored breathing. Cardiovascular: RRR. No rubs, murmurs or gallops. Gastrointestinal (Abdomen): Soft, non-distended. No pain with palpation. Skin: No visible lesions to exposed areas. Neurologic: CN II - XII intact. Results & Data ([facility]) Vital Signs (Past 12 Hours) Vital Signs Temp Pulse Pulse Pulse Resp BP BP 07/01/21 03:51 36.7 C 81 16 105/72 07/01/21 02:13 37.2 C 91 H 20 128/64 07/01/21 02:00 102 H 07/01/21 01:30 86 20 110/81 07/01/21 01:20 80 19 119/86 07/01/21 01:10 79 17 107/82 07/01/21 01:00 36.7 C 72 16 113/71 07/01/21 00:50 72 18 118/81 07/01/21 00:40 98 H 20 131/89 07/01/21 00:30 64 16 135/79 07/01/21 00:20 84 22 141/88 H 07/01/21 00:10 106 H 20 127/87 07/01/21 00:01 36.9 C 108 H 20 142/101 H 06/30/21 22:27 97 H 19 126/74 06/30/21 22:00 101 H 17 118/74 Pulse Ox 07/01/21 03:51 93 07/01/21 02:13 97 07/01/21 02:00 07/01/21 01:30 96 07/01/21 01:20 95 07/01/21 01:10 99 07/01/21 01:00 97 07/01/21 00:50 97 07/01/21 00:40 94 07/01/21 00:30 97 07/01/21 00:20 98 07/01/21 00:10 99 07/01/21 00:01 97 06/30/21 22:27 99 06/30/21 22:00 99 Laboratory Results Hb - 12.8 g/dL Hct - 39% WBC - 9.45 K/uL Plt - 324 K/uL Na - 141 mmol/L K - 4.1 mmol/L Cl - 112 mmol/L HCO3 - 23 mmol/L BUN - 12 mg/dl Cr - .74 mg/dl Glucose - 110 mg/dl Diagnostic Findings Soft Tissue Neck CT: Findings are concerning for an abscess or developing abscess in the sublingual space (Anthony angina). Lymphadenopathy is seen which is likely reactive. Abscess Culture: Pending result. Medications Administered Acetaminophen 650 mg PO Q4H PRN Ampicillin 3000mg IV Q6H Dexamethasone 10 mg. 2.5 mls @ 1 mls/min IV q8H Levalbuterol PRN Mirtazapine 15 mg PO HS Morphine Sulfate 2 mg IV q3H PRN Morphine Sulfate 4 mg IV q3H PRN Pantoprazole 40 mg PO Daily Sertraline HCL 50 mg PO Daily Topiramate 50 mg PO BID
[2021-07-01] MEDS: oxyCODONE HCL SOLN 5 MG/5 ML UDC PO SCH (16:51)
[2021-07-01] MEDS: MIRTAZAPINE TAB 15 MG TAB PO SCH (21:17)
[2021-07-02] MEDS: oxyCODONE HCL SOLN 5 MG/5 ML UDC PO SCH ×2 (00:21→09:24)
[2021-07-02] MEDS: AMPICILLIN/SULBACTAM SOD 3,000 MG in 0.9 % SODIUM CHLORIDE 100 ML IV SCH ×5 (00:22→23:50)
[2021-07-02] MEDS ORDERED: POLYETHYLENE (MIRALAX) 17 GM PACK PO STA (00:41)
[2021-07-02] MEDS: MoRPHine SULFATE 4 MG/ML 1 ML CARP\\VIAL IV PRN ×3 (01:24→07:44)
[2021-07-02 06:52] LABS: Basophils # (auto) 0.01 K/uL (0-0.2); Basophils % (auto) 0.1 %; Hemoglobin 11.7 g/dL (12.0-16.0); Immature Granulocytes # (auto) 0.06 K/uL (0.00-0.02); Immature Granulocytes % (auto) 0.5 %; Lymphocytes # (auto) 2.48 K/uL (1.2-3.4); Lymphocytes % (auto) 21.1 %; Mean Corpuscular Hgb Conc 31.6 g/dL (32-36); Mean Corpuscular Volume 94.9 fL (80-100); Mean Platelet Volume 9.5 fL (7.4-10.4); Monocytes # (auto) 1.07 K/uL (0.11-0.59); Monocytes % (auto) 9.1 %; Neutrophils # (auto) 8.16 K/uL (1.4-6.5); Neutrophils % (auto) 69.2 %; Platelet Count 343 K/uL (130-400); RDW Coefficient of Variation 13.8 % (11.5-14.5); RDW Standard Deviation 47.2 fL (36.4-46.3); White Blood Count 11.78 K/uL (4.8-10.8)
[2021-07-02 07:21] LABS: BUN Creatinine Ratio 19.9 (10-20); Calcium 8.9 mg/dl (8.5-10.1); Creatinine Clr Calc Pharmacy 140.1 ml/min; Est GFR (African American) 131.4 ml/min; Est GFR (Non-African American) 113.4 ml/min; Potassium 4.1 mmol/L (3.5-5.1)
--- NOTE | 2021-07-02 08:37 | Ears,Nose,Throat Progress Note ---
Date of Service July 02, 2021 Assessment & Plan (1) Ludwigs angina: (2) Sublingual abscess: Plan: 25yF s/p I+D sublingual abscess, early Anthony's angina. Doing well postoperatively, healing as expected. Iodoform gauze backed out again today. No respiratory concerns -OK for soft diet from ENT standpoint -Continue unasyn, f/u cultures -Decadron 10mg Q8h x3 doses, then transition to medrol -Continuous pulse ox -Will ultimately need removal of underlying likely cystic lesion as an outpatient once infection resolved -Expect inpatient stay over the weekend given [facility] at her longterm -Will continue to follow Admission and Anticipated Discharge Date Admission Date: June 30, 2021 Subjective NARGIS o/n. Ongoing soreness intraorally. No dyspnea or dysphagia. Mild ss drainage from incision. Dysarthria improved. WBC 9 --> 11.8, recent steroids. No fevers Physical Exam Physical Exam: WNWD, NAD Improved ROM of tongue and dysarthria FOM with ongoing mild induration, mildly firm without fluctuance Incision intact with iodoform gauze, backed out 2 cm Minimal ss drainage Neck soft Results & Data ([facility]) Vital Signs (Past 12 Hours) Vital Signs Temp Pulse Pulse Resp BP Pulse Ox Pulse Ox 07/02/21 04:43 36.8 C 93 H 20 133/86 97 07/02/21 02:40 82 07/02/21 02:13 95 07/01/21 22:53 37.0 C 85 18 104/68 94 Laboratory Results Gram stain GPCs in chains PG Care Time/CCT Total # of Minutes Spent Total Time Spent with Patient: Total time spent is greater than 50% in coordination of care (as documented) at patient's floor/unit and/or counseling patient: Coding Level of Care Code 27807 Subseq Hosp Care Lvl 2 Diagnoses Ludwigs angina K12.2 Sublingual abscess K12.2
--- NOTE | 2021-07-02 09:11 | Medical Student Progress Note ---
Date of Service July 02, 2021 Assessment & Plan (1) Sublingual abscess: (2) Ludwigs angina: Plan: Summary: 25 y/o female with a h/o of oral abscesses with CC of difficulty swallowing, chewing and speaking as a result of an oral abscess. ENT performed I&D for a midline sublingual abscess on 07/01/21. Pending culture of the abscess. ENT offers Dx of Anthony Angina. #1 Oral Abscess 1 day S/P I&D On physical exam the patient is doing well post-surgery. She is able to eat. Does not report any issues with breathing, chewing and speaking. Pulse Ox on room air 97%. No signs of infection to incision or in her mouth. - Continue with Ampicillin/Sulbactam - Per ENT, start Methylprednisolone #2 Pain Secondary to I&D - Discontinue Morphine - Discontinue Oxycodone - Start Hydromorphone.25 mg IV q24h PRN #3 DVT Prophylaxis On physical exam this morning she was not wearing her knee and thigh SCD. Pt advised that she is not on chemical DVT prophylaxis and encouraged to not remove her SCD. #4 Asthma - Levalbuterol PRN #5 GERD - Continue Pantoprazole #6 HTN - Continue Guanfacine #7 Anxiety/Depression - Continue Mirtazapine, Sertraline, Topirimate DVT Prophylaxis: SCD Knee and Thigh FEN: NSS @ 125 mls/hr IV Diet: per ENT, Soft Foods Only Dispo: per ENT, admit Pt through the weekend for observation. Code: Full Code Admission and Anticipated Discharge Date Admission Date: June 30, 2021 Subjective 25 y/o female with h/o of Anthony Angina, presents with CC of difficulty swallowing, chewing and speaking. She is 1 days S/P Sublingual I&D. She rates her pain today as a 6/10. Has concerns about adjusting pain medications. She has an itchy sensation to her arms and legs and is wondering if she can get Benadryl for treatment. She reports no fevers. She has not noticed any blood of pus in her mouth. She has no difficulty speaking, chewing, swallowing or breathing. Review of Systems Respiratory: Physical Exam Constitutional: NAD. Pleasant affect. Responding appropriately to questions. Eyes: No Visible discharge from the eyes. Respiratory: Clear to auscultation BL. No ronchi, no wheezing. No labored breaths. Cardiovascular: RRR. No rubs, murmurs or gallops. Strong and equal radial/pedal pulses. Musculoskeletal: Equal sensation to both of her lower extremities. Skin: No ecchymosis, erythema, edma to her neck, arms and legs. Psychiatric: AOx3 Results & Data ([facility]) Vital Signs (Past 12 Hours) Vital Signs Temp Pulse Pulse Resp BP Pulse Ox Pulse Ox 07/02/21 04:43 36.8 C 93 H 20 133/86 97 07/02/21 02:40 82 07/02/21 02:13 95 07/01/21 22:53 37.0 C 85 18 104/68 94 Laboratory Results Hb - 11.7 g/dL Hct - 37% WBC - 11.78 K/uL Plt - 343 K/uL Na - 140 mmol/L K - 4.1 mmol/L Cl - 113 mmol/L HCO3 - 23 mmol/L BUN - 15 mg/dl Cr - .74 mg/dl Glucose - 130 mg/dl Diagnostic Findings Pending abscess culture. Medications Administered Current Inpatient Medications Acetaminophen (Acetaminophen 325 Mg Tab) 650 mg PO Q4H PRN PRN Reason: Pain or Fever Stop: 07/31/21 02:12 Diphenhydramine HCl (Diphenhydramine 50 Mg/Ml Vial) 25 mg IV Q4H PRN PRN Reason: Itching Stop: 08/01/21 11:45 Hydromorphone HCl (Hydromorphone Inj 0.5 Mg/0.5 Ml Syr) 0.25 mg IV Q4H PRN PRN Reason: Pain Stop: 07/16/21 14:28 Last Admin: 07/02/21 14:58 Dose: 0.25 mg Documented by: Ampicillin Sodium/Sulbactam Sodium 3,000 mg/ Sodium Chloride 108 mls @ 200 mls/hr IV Q6H FRANCISCA; Protocol Stop: 07/11/21 05:59 Last Infusion: 07/02/21 12:17 Dose: Infused Documented by: Levalbuterol HCl (Levalbuterol Tartrate 15 Gm Hfa.Aer.Ad) 2 puffs INH QID PRN PRN Reason: Shortness Of Breath Stop: 07/31/21 02:12 Methylprednisolone (Methylprednisolone 4 Mg Tab) 8 mg PO 0700,2100 FRANCISCA Stop: 07/02/21 21:01 Last Admin: 07/02/21 14:19 Dose: Not Given Documented by: Methylprednisolone (Methylprednisolone 4 Mg Tab) 4 mg PO 1300,1800 [facility] Stop: 07/02/21 18:01 Last Admin: 07/02/21 14:19 Dose: 4 mg Documented by: Methylprednisolone (Methylprednisolone 4 Mg Tab) 4 mg PO 0700,1300,1800 [facility] Stop: 07/03/21 18:01 Methylprednisolone (Methylprednisolone 4 Mg Tab) 8 mg PO HS [facility] Stop: 07/03/21 21:01 Methylprednisolone (Methylprednisolone 4 Mg Tab) 4 mg PO 0700,1300,1800,2100 FR[facility]ISCA Stop: 07/04/21 21:01 Methylprednisolone (Methylprednisolone 4 Mg Tab) 4 mg PO 0700,1300,2100 [facility] Stop: 07/05/21 21:01 Methylprednisolone (Methylprednisolone 4 Mg Tab) 4 mg PO 0700,2100 [facility] Stop: 07/06/21 21:01 Methylprednisolone (Methylprednisolone 4 Mg Tab) 4 mg PO 0700 [facility] Stop: 07/07/21 07:01 Mirtazapine (Mirtazapine Tab 15 Mg Tab) 15 mg PO HS [facility] Stop: 07/31/21 20:59 Last Admin: 07/01/21 21:17 Dose: 15 mg Documented by: Pantoprazole Sodium (Pantoprazole 40 Mg Tab) 40 mg PO DAILY [facility] Stop: 07/31/21 08:59 Last Admin: 07/02/21 09:25 Dose: 40 mg Documented by: Polyethylene Glycol (Polyethylene (Miralax) 17 Gm Pack) 17 gm PO DAILY PRN PRN Reason: Constipation Stop: 07/31/21 02:12 Sertraline HCl (Sertraline Hcl 50 Mg Tablet) 50 mg PO DAILY FR[facility]ISCA Stop: 07/31/21 08:59 Last Admin: 07/02/21 09:25 Dose: 50 mg Documented by: Topiramate (Topiramate 50 Mg Tab) 50 mg PO BID [facility] Stop: 07/31/21 08:59 Last Admin: 07/02/21 09:25 Dose: 50 mg Documented by:
[2021-07-02] MEDS: PANTOprazole 40 MG TAB PO SCH (09:25)
[2021-07-02] MEDS: SERTRALINE HCL 50 MG TABLET PO SCH (09:25)
[2021-07-02] MEDS: TOPIRAMATE 50 MG TAB PO SCH ×2 (09:25→20:34)
[2021-07-02] MEDS ORDERED: MoRPHine SULFATE 4 MG/ML 1 ML CARP\\VIAL IV PRN (09:31)
[2021-07-02] MEDS ORDERED: KETOROLAC TROMETHAMINE 15 MG/ML VIAL IV SCH (09:45)
--- NOTE | 2021-07-02 10:23 | Hospitalist Progress Note ---
Date of Service July 02, 2021 Assessment & Plan (1) Sublingual abscess: Plan: 25 yo F w/ pMHx. of asthma, GERD, migraines, and Anthony's angina presents with swelling of the sublingual area. Sublingual abscess - s/p I+D by ENT 06/30 - CT neck w/ finding of abscess in the submandibular space along with reactive lymphadenopathy - ENT consulted -OK for soft diet from ENT standpoint -Continue unasyn, f/u cultures -Decadron 10mg Q8h x3 doses, then transition to medrol -Continuous pulse ox -Will ultimately need removal of underlying likely cystic lesion as an outpatient once infection resolved -Expect inpatient stay over the weekend given [facility] her [facility] - Continue Unasyn 3g Q6H - Oxycodone 5mg PO q8h scheduled and Toradol 15mg IV q6h scheduled - Continue Morphine prn and APAP prn for pain - Dexamethasone 10mg Q8H X3 doses for swelling -- completed - Per ENT above, will start Medrol dose pack - continuous pulse oximetry - AM CBC Migraines - Chronic issue, no current complaints - Continue topiramate 50mg PO BID Asthma - Levalbuterol PRN GERD - Continue Pantoprazole Depression - Continue mirtazapine, sertraline Code: FULL CODE Diet: Soft diet DVT: SCDs Dispo: Telemetry, consider downgrade if continues stable tomorrow, likely DC after weekend as above Admission and Anticipated Discharge Date Admission Date: June 30, 2021 Supervising Physician Co-Signing Physician Notes Resident Physician Supervision Note: I independently interviewed and examined the patient and verified the sánchez hi story and physical, reviewed labs and image studies and agree with resident Dr. Lucas findings and care plan. Subjective No acute events overnight. Patient this AM reporting that her pain is still not well controlled. Otherwise no fever, chills, SOB, cough, n/v. Review of Systems Review of Systems: Denies fever, chills, n/v, SOB, difficulty breathing, cough. Physical Exam Physical Exam: GENERAL: A&Ox3. NAD. HEENT: EOMI. Moist mucous membranes. Surgical packing in place. Minimal drainage. Neck: Covered with gauze that is c/d/i CHEST/LUNGS: CTAB A/P. No crackles, wheezes, rales, rhonchi. HEART: RRR. No m/g/r. No carotid bruits. SKIN: Warm and dry. No rashes or lesions. PSYCHIATRIC: Euthymic affect, no SI, no pressured speech, no hallucinations NEUROLOGIC: No FND. CN II-XII grossly intact. Results & Data Results & Data ([facility]) Vital Signs (Past 12 Hours) Vital Signs Temp Pulse Pulse Resp BP Pulse Ox Pulse Ox 07/02/21 04:43 36.8 C 93 H 20 133/86 97 07/02/21 02:40 82 07/02/21 02:13 95 07/01/21 22:53 37.0 C 85 18 104/68 94 Resident Activity Tracking Resident Involvement: Resident Care Provided Care Provided: Adult Hospital Medicine
[2021-07-02] MEDS ORDERED: diphenhydrAMINE 50 MG/ML VIAL IV PRN (11:46)
[2021-07-02] MEDS ORDERED: methylPREDNISolone 4 MG TAB, 6 DAY TAPER PO SCH (12:15)
[2021-07-02] MEDS: methylPREDNISolone 4 MG TAB PO SCH ×4 (14:19→20:34)
[2021-07-02] MEDS: HYDROmorphone INJ 0.5 MG/0.5 ML SYR IV PRN ×2 (14:58→20:33)
[2021-07-02] MEDS: MIRTAZAPINE TAB 15 MG TAB PO SCH (20:34)
[2021-07-03] MEDS: HYDROmorphone INJ 0.5 MG/0.5 ML SYR IV PRN ×4 (00:47→18:19)
[2021-07-03] MEDS: AMPICILLIN/SULBACTAM SOD 3,000 MG in 0.9 % SODIUM CHLORIDE 100 ML IV SCH ×4 (05:32→23:21)
[2021-07-03] MEDS: methylPREDNISolone 4 MG TAB PO SCH ×3 (07:27→17:37)
[2021-07-03 08:19] LABS: Basophils # (auto) 0.01 K/uL (0-0.2); Basophils % (auto) 0.1 %; Eosinophils # (auto) 0.03 K/uL (0-0.5); Eosinophils % (auto) 0.3 %; Hematocrit (blood only) 39.2 % (37-47); Hemoglobin 12.3 g/dL (12.0-16.0); Immature Granulocytes # (auto) 0.03 K/uL (0.00-0.02); Immature Granulocytes % (auto) 0.3 %; Lymphocytes # (auto) 3.56 K/uL (1.2-3.4); Lymphocytes % (auto) 38.7 %; Mean Corpuscular Hemoglobin 29.8 pg (25-34); Mean Corpuscular Hgb Conc 31.4 g/dL (32-36); Mean Corpuscular Volume 94.9 fL (80-100); Mean Platelet Volume 9.7 fL (7.4-10.4); Monocytes # (auto) 0.71 K/uL (0.11-0.59); Monocytes % (auto) 7.7 %; Neutrophils # (auto) 4.87 K/uL (1.4-6.5); Neutrophils % (auto) 52.9 %; Platelet Count 344 K/uL (130-400); RDW Coefficient of Variation 13.6 % (11.5-14.5); RDW Standard Deviation 46.9 fL (36.4-46.3); Red Blood Count 4.13 M/uL (4.2-5.4); White Blood Count 9.21 K/uL (4.8-10.8)
[2021-07-03 08:47] LABS: BUN Creatinine Ratio 24.2 (10-20); Calcium 8.5 mg/dl (8.5-10.1); Est GFR (African American) 135.9 ml/min; Est GFR (Non-African American) 117.2 ml/min; Potassium 4.2 mmol/L (3.5-5.1)
--- NOTE | 2021-07-03 09:04 | Ears,Nose,Throat Progress Note ---
Date of Service July 03, 2021 Assessment & Plan (1) Ludwigs angina: Plan: Responding well to IV antibiotics and steroids, switch to Medrol. Finally less pain and less swelling under the tongue. Pinpoint growth in culture, gram- positive cocci in chains, probably Staphylococcus. Continue IV antibiotics. I will see her tomorrow a.m. And advanced iodoform gauze. (2) Sublingual abscess: Admission and Anticipated Discharge Date Admission Date: July 02, 2021 Subjective Finally better this a.m. with less pain, able to eat and swallow soft diet. Able to extend tongue out without pain. Physical Exam Constitutional: WD/WN, vitals as above + obese Eyes: PERRL, conjunctivae normal, anicteric sclerae ENMT: external ear and nose normal, oropharynx normal Mouth: + tongue abnormality (Able to thrust tongue forward, full mobility, nontender, soft under tongue) Neck: Iodoform gauze advance 1 cm, no purulence Results & Data ([facility]) Vital Signs (Past 12 Hours) Vital Signs Temp Pulse Pulse Resp BP BP Pulse Ox 07/03/21 08:00 36.9 C 74 18 129/64 98 07/03/21 03:12 36.6 C 58 L 18 130/84 95 07/02/21 22:58 72 07/02/21 22:27 36.7 C 71 16 116/87 95
[2021-07-03] MEDS: SERTRALINE HCL 50 MG TABLET PO SCH (09:24)
[2021-07-03] MEDS: TOPIRAMATE 50 MG TAB PO SCH ×2 (09:25→20:38)
[2021-07-03] MEDS: PANTOprazole 40 MG TAB PO SCH (09:25)
--- NOTE | 2021-07-03 10:37 | Hospitalist Progress Note ---
Date of Service July 03, 2021 Assessment & Plan (1) Sublingual abscess: Plan: 25 yo F w/ pMHx. of asthma, GERD, migraines, and Anthony's angina presents with swelling of the sublingual area. Sublingual abscess - s/p I+D by ENT 06/30 - CT neck w/ finding of abscess in the submandibular space along with reactive lymphadenopathy - ENT consulted - Responding well to IV antibiotics and steroids, switch to Medrol. - Finally less pain and less swelling under the tongue. - Pinpoint growth in culture, gram-positive cocci in chains, probably Staphylococcus. - Continue IV antibiotics. - Continue Unasyn 3g Q6H - Dilaudid 0.25mg IV adjusted to q6h prn - Dexamethasone 10mg Q8H X3 doses for swelling -- completed - Continue Medrol - continuous pulse oximetry - AM CBC Migraines - Chronic issue, no current complaints - Continue topiramate 50mg PO BID Asthma - Levalbuterol PRN GERD - Continue Pantoprazole Depression - Continue mirtazapine, sertraline Code: FULL CODE Diet: Soft diet DVT: SCDs Dispo: Telemetry, DC once able to transition to oral abx Admission and Anticipated Discharge Date Admission Date: July 02, 2021 Supervising Physician Co-Signing Physician Notes Resident Physician Supervision Note: I independently interviewed and examined the patient and verified the sánchez history and physical, reviewed labs and image studies and agree with resident Dr. Lucas findings and care plan. Subjective Patient seen at bedside this morning. She reports that her pain is much better controlled since switching from morphine to Dilaudid. She has no further complaints or concerns currently. Review of Systems Review of Systems: Denies fever, chills, n/v, SOB, difficulty breathing, cough. Physical Exam Physical Exam: GENERAL: A&Ox3. NAD. Neck: Covered with gauze that is c/d/i CHEST/LUNGS: CTAB A/P. No crackles, wheezes, rales, rhonchi. HEART: RRR. No m/g/r. No carotid bruits. SKIN: Warm and dry. No rashes or lesions. PSYCHIATRIC: Euthymic affect, no SI, no pressured speech, no hallucinations Results & Data Results & Data ([facility]) Vital Signs (Past 12 Hours) Vital Signs Temp Pulse Pulse Resp BP BP Pulse Ox 07/03/21 08:00 36.9 C 74 18 129/64 98 07/03/21 07:20 51 L 07/03/21 03:12 36.6 C 58 L 18 130/84 95 07/02/21 22:58 72 Resident Activity Tracking Resident Involvement: Resident Care Provided Care Provided: Adult Hospital Medicine
[2021-07-03] MEDS: MIRTAZAPINE TAB 15 MG TAB PO SCH (20:38)
[2021-07-03] MEDS ORDERED: methylPREDNISolone 4 MG TAB PO SCH (21:00)
[2021-07-04] MEDS: HYDROmorphone INJ 0.5 MG/0.5 ML SYR IV PRN ×5 (00:26→23:54)
[2021-07-04] MEDS: AMPICILLIN/SULBACTAM SOD 3,000 MG in 0.9 % SODIUM CHLORIDE 100 ML IV SCH ×4 (05:33→23:54)
[2021-07-04] MEDS: methylPREDNISolone 4 MG TAB PO SCH ×4 (07:34→20:14)
--- NOTE | 2021-07-04 08:43 | Ears,Nose,Throat Progress Note ---
Date of Service July 04, 2021 Assessment & Plan (1) Ludwigs angina: Plan: improved, advance diet, ambulate, advanced iodoform gauze, may remove tomorrow (2) Sublingual abscess: Admission and Anticipated Discharge Date Admission Date: July 02, 2021 Subjective Continues to improve, minimal pain, eating well Physical Exam Constitutional: + obese Eyes: PERRL, conjunctivae normal, anicteric sclerae ENMT: external ear and nose normal, oropharynx normal Neck: advanced and cut off another 1 cm of iodoform gauge, no drainage, nontender Results & Data ([facility]) Vital Signs (Past 12 Hours) Vital Signs Temp Pulse Pulse Resp BP Pulse Ox 07/04/21 08:00 36.9 C 76 18 115/77 95 07/04/21 03:18 36.6 C 88 20 116/64 96 07/03/21 23:01 75 07/03/21 22:00 36.6 C 60 20 127/85 96 Laboratory Results Alpha strep on culture
[2021-07-04] MEDS: SERTRALINE HCL 50 MG TABLET PO SCH (09:06)
[2021-07-04] MEDS: PANTOprazole 40 MG TAB PO SCH (09:06)
[2021-07-04] MEDS: TOPIRAMATE 50 MG TAB PO SCH ×2 (09:06→20:14)
--- NOTE | 2021-07-04 09:28 | Hospitalist Progress Note ---
Date of Service July 04, 2021 Assessment & Plan (1) Sublingual abscess: Plan: 25 yo F w/ pMHx. of asthma, GERD, migraines, and Anthony's angina presents with swelling of the sublingual area. Sublingual abscess - s/p I+D by ENT 06/30 - CT neck w/ finding of abscess in the submandibular space along with reactive lymphadenopathy - ENT consulted - Responding well to IV antibiotics and steroids, switch to Medrol. - Finally less pain and less swelling under the tongue. - Pinpoint growth in culture, gram-positive cocci in chains, probably Staphylococcus. - Continue IV antibiotics. - Continue Unasyn 3g Q6H - Continue Dilaudid 0.25mg IV q6h prn - Dexamethasone 10mg Q8H X3 doses for swelling -- completed - Continue Medrol Migraines - Chronic issue, no current complaints - Continue topiramate 50mg PO BID Asthma - Levalbuterol PRN GERD - Continue Pantoprazole Depression - Continue mirtazapine, sertraline Code: FULL CODE Diet: Soft diet DVT: SCDs Dispo: [facility] once able to transition to oral abx - likely 07/05. Admission and Anticipated Discharge Date Admission Date: July 02, 2021 Supervising Physician Co-Signing Physician Notes Resident Physician Supervision Note: I independently interviewed and examined the patient and verified the sánchez history and physical, reviewed labs and image studies and agree with resident Dr. Lucas findings and care plan. Subjective Patient seen at [facility]. Pain well controlled, eating well. No complaints/concerns today. Review of Systems Review of Systems: Denies fever, chills, n/v, SOB, difficulty breathing, cough. Physical Exam Physical Exam: GENERAL: A&Ox3. NAD. Neck: Submental bandage in place that is c/d/i CHEST/LUNGS: CTAB A/P. No crackles, wheezes, rales, rhonchi. HEART: RRR. No m/g/r. No carotid bruits. SKIN: Warm and dry. No rashes or lesions. PSYCHIATRIC: Euthymic affect, no SI, no pressured speech, no hallucinations Results & Data Results & Data ([facility]) Vital Signs (Past 12 Hours) Vital Signs Temp Pulse Pulse Resp BP Pulse Ox 07/04/21 08:00 36.9 C 76 18 115/77 95 07/04/21 03:18 36.6 C 88 20 116/64 96 07/03/21 23:01 75 07/03/21 22:00 36.6 C 60 20 127/85 96 Resident Activity Tracking Resident Involvement: Resident Care Provided Care Provided: Adult Hospital Medicine
[2021-07-04] MEDS: ACETAMINOPHEN 325 MG TAB PO PRN (19:24)
[2021-07-04] MEDS: MIRTAZAPINE TAB 15 MG TAB PO SCH (20:14)
[2021-07-05] MEDS: HYDROmorphone INJ 0.5 MG/0.5 ML SYR IV PRN ×2 (05:34→13:06)
[2021-07-05] MEDS: AMPICILLIN/SULBACTAM SOD 3,000 MG in 0.9 % SODIUM CHLORIDE 100 ML IV SCH ×2 (05:34→11:40)
[2021-07-05] MEDS: methylPREDNISolone 4 MG TAB PO SCH ×2 (06:03→12:46)
--- NOTE | 2021-07-05 07:47 | Ears,Nose,Throat Progress Note ---
Date of Service July 05, 2021 Assessment & Plan (1) Ludwigs angina: Plan: Improved. Brief syncopal episode when I advanced packing, no seizure activity, BP okay. < 30 sec. Now alert and oriented. Still okay for discharge with PO augmentin. See me in office Monday to advance packing, clean with peroxide and apply mupirocin. (2) Sublingual abscess: Admission and Anticipated Discharge Date Admission Date: July 02, 2021 Subjective Much better, eating well, minimal pain Physical Exam Constitutional: WD/WN, vitals as above Eyes: PERRL, conjunctivae normal, anicteric sclerae ENMT: external ear and nose normal, oropharynx normal Neck: advanced iodoform anther Cm. Results & Data ([facility]) Vital Signs (Past 12 Hours) Vital Signs Temp Pulse Resp BP BP Pulse Ox 07/05/21 07:38 36.6 C 41 L 16 128/84 91 07/05/21 07:25 36.7 C 50 L 16 103/62 96 07/04/21 22:08 36.8 C 71 16 122/75 95
[2021-07-05 07:52] LABS: Basophils # (auto) 0.01 K/uL (0-0.2); Basophils % (auto) 0.1 %; Eosinophils # (auto) 0.05 K/uL (0-0.5); Eosinophils % (auto) 0.4 %; Hematocrit (blood only) 41.8 % (37-47); Hemoglobin 13.5 g/dL (12.0-16.0); Immature Granulocytes # (auto) 0.04 K/uL (0.00-0.02); Immature Granulocytes % (auto) 0.4 %; Lymphocytes # (auto) 3.14 K/uL (1.2-3.4); Lymphocytes % (auto) 28.1 %; Mean Corpuscular Hemoglobin 30.1 pg (25-34); Mean Corpuscular Hgb Conc 32.3 g/dL (32-36); Mean Corpuscular Volume 93.1 fL (80-100); Mean Platelet Volume 9.6 fL (7.4-10.4); Monocytes # (auto) 0.74 K/uL (0.11-0.59); Monocytes % (auto) 6.6 %; Neutrophils # (auto) 7.21 K/uL (1.4-6.5); Neutrophils % (auto) 64.4 %; Platelet Count 361 K/uL (130-400); RDW Coefficient of Variation 13.4 % (11.5-14.5); RDW Standard Deviation 45.7 fL (36.4-46.3); Red Blood Count 4.49 M/uL (4.2-5.4); White Blood Count 11.19 K/uL (4.8-10.8)
[2021-07-05] MEDS: ACETAMINOPHEN 325 MG TAB PO PRN (08:18)
[2021-07-05] MEDS: PANTOprazole 40 MG TAB PO SCH (08:18)
[2021-07-05] MEDS: TOPIRAMATE 50 MG TAB PO SCH (08:18)
[2021-07-05] MEDS: SERTRALINE HCL 50 MG TABLET PO SCH (08:19)
[2021-07-05 08:26] LABS: Creatinine Clr Calc Pharmacy 138.6 ml/min; Est GFR (African American) 129.3 ml/min; Est GFR (Non-African American) 111.6 ml/min; Potassium 4.1 mmol/L (3.5-5.1)
--- NOTE | 2021-07-05 12:19 | Discharge Summary ---
Date of Service July 05, 2021 Admission HPI Per Admitting Provider Alisia Rodriguez is a 25-year-old female here with a past medical history of Ludwigs angina and Asthma who is presenting with swelling under her jaw and tongue. This has happened several times previously starting when she was 12 years old with 10 prior surgeries for this. She feels that this is not as bad as it has been in the past because she had it evaluated sooner than she typically does. She noted that it started two days ago as some pain under her chin that she thought might be a developing cold. She then had pain and swelling yesterday that progressively worsened. She currently has 9/10 after getting Toradol in the ER. She is not having trouble breathing or drooling. She has no known triggers and had no recent dental infection or teeth that were bothering her. Admission Exam Per Admitting Provider Constitutional: well developed and well nourished; no acute distress Eyes: PERRL, conjunctivae normal, anicteric sclerae ENMT: - tongue elevated, posterior oropharynx crowding - uvula midline - missing teeth, no swelling or redness of the gums Neck: + thick neck - tender and swollen in the midline submandibular area Respiratory: normal respiratory effort, lungs clear to auscultation Cardiovascular: RRR, no murmur, no edema Gastrointestinal (Abdomen): normal bowel sounds, soft, nontender, no hepatosplenomegaly Musculoskeletal: no cyanosis or clubbing, extremities motor strength 5/5 Skin: no rashes, warm and dry Neurologic: no focal motor deficits Psychiatric: A+Ox3, euthymic affect Principal Diagnosis sublingual abscess Discharge Exam GENERAL: No acute distress. Well developed and well nourished. Vital signs reviewed as above. EYES: PERRLA. EOMI. Anicteric sclerae. HENT: Moist mucous membranes. No pharyngeal erythema or exudates. NECK: Full active range of motion. Submental bandage in place and is c/d/i. RESPIRATORY: Clear to auscultation bilaterally. No wheezing, rales, or rhonchi. CARDIOVASCULAR: Regular rate and rhythm. No murmurs. ABDOMEN: Soft, non-tender and non-distended. Normal bowel sounds. EXTREMITIES: No edema. Non-tender. SKIN: Warm, dry. No rashes or lesions. NEUROLOGIC: No focal neurological deficits. A/O x3. PSYCHIATRIC: Cooperative. Appropriate mood and affect. Discharge Data Allergies Allergy/AdvReac Type Severity Reaction Status Date / Time No Known Allergies Allergy Unverified 06/30/21 17:33 Consultations 06/30/21 20:33 ED Decision to Admit Stat 06/30/21 21:41 ED Decision to Admit Stat Procedures Performed Operation Date: 06/30/21 22:00 Actual Procedures p Irrigation and Debridement of Sublingual Abscess - Nadeem Castillo MD Ordered Studies 06/30/21 17:18 CT soft tissue neck w con Stat Hospital Course (1) Sublingual abscess: 25 yo F w/ pMHx. of asthma, GERD, migraines, and Onel's angina presents with swelling of the sublingual area. Sublingual abscess - s/p I+D by ENT 06/30 - CT neck 06/30/21 w/ finding of abscess in the submandibular space along with reactive lymphadenopathy - ENT consulted - Responding well to IV antibiotics and steroids, switch to Medrol taper -- to be completed 07/07/21. - Progressively less pain and less swelling under the tongue. - Pinpoint growth in culture, gram-positive cocci in chains, probably Staphylococcus. - Dexamethasone 10mg Q8H X3 doses for swelling -- completed - Received Unasyn 3g Q6H IV during admission. Converted to Augmentin po BID on discharge -- plan for total of 14 days of therapy. - Received Dilaudid 0.25mg IV q6h prn. Continue with Tylenol 650mg q6h prn on discharge. - Follow up with Dr. Rowland (ENT) on 07/07/21 Migraines - Chronic issue, no current complaints - Continue topiramate 50mg PO BID Asthma - Levalbuterol PRN GERD - Continue Pantoprazole Depression - Continue mirtazapine, sertraline Total Time Total Time Spent Total Time Spent (In Minutes): <30 Discharge Plan Discharge Items [facility] Reason For Visit: SUBLINGUAL ABSCESS Discharge Diagnosis: Sublingual abscess Condition on Discharge: Good Activity: Per Instructions section Non-emergency contact: Primary Care Provider and Surgeon Call non-emergency contact if: you have any medication questions, your symptoms worsen and your pain is not controlled Follow-up/Referrals: Sherice Rowland MD [Physician] - 07/07/21 PCP,NO [Physician] - Diet: Regular Addtl Attending Provider Instructions: Alisia was admitted to [facility] due to a sublingual abscess. She was seen by our Ears, Nose, and Throat (ENT) specialists who recommended that she have surgery to drain the abscess. Surgery was done on 06/30/2021 without complications. She recovered well during her hospitalization while being treated with IV antibiotics and pain control medications. She will be discharged with oral antibiotics. This medication will be as follows: * Augmentin 875mg twice daily for the next 10 days. This medication duration may be adjusted by the ENT specialist on follow up. * Medrol dose pack taper as prescribed. She should have outpatient follow-up with ENT as recommended on 07/07/2021. If Alisia develops worsening pain, fever, chills, nausea, vomiting, shortness of breath or any symptoms conncerning for return of infection, please return to hospital for reevaluation. Pending Studies at Discharge: No Stand-Alone Forms: My [facility] Skilled Items Patient informed of condition?: Yes Discharge Level of Care: Other Communicable Disease: No Discharge Prognosis: Stable Lines: None Urinary Catheter: No Medications and DC Order Prescriptions: New acetaminophen 325 mg Tablet 650 mg PO Q4H PRN (Reason: pain) Qty: 20 RF: 0 methylprednisolone 4 mg Tablet 4 mg PO DIRECTED 3 Days Qty: 4 RF: 0 amoxicillin-pot clavulanate [Augmentin] 875-125 mg tablet 1 tab PO BID 10 Days Qty: 20 RF: 0 Continued pantoprazole 40 mg Tablet,Delayed Release (Dr/Ec) 40 mg PO DAILY RF: 0 mirtazapine 15 mg Tablet 15 mg PO HS RF: 0 sertraline 50 mg Tablet 50 mg PO DAILY RF: 0 Excedrin Extra Strength 250-250-65 mg Tablet 2 tab PO DAILY RF: 0 topiramate [Topamax] 50 mg Tablet 50 mg PO BID RF: 0 levalbuterol tartrate [Xopenex HFA] 45 mcg/actuation Hfa Aerosol Inhaler 2 inh INHALATION QID PRN (Reason: Shortness Of Breath) RF: 0 guanfacine [Intuniv ER] 1 mg Tablet Extended Release 24 Hr 1 mg PO HS RF: 0 calcium polycarbophil [FiberCon] 625 mg Tablet 625 mg PO BID RF: 0 Hemorrhoidal Ointment 1 ea [place] BID RF: 0 Discharge Orders: Discharge Order (Routine); Ordered 07/05/21 Ordered By: Ale Jennings Admission Data Admit Date/Time: 07/02/21 10:25 Attending Provider: Jose Cunningham Admit Provider: Herber Matt Primary Care Provider: Blanca WEST Other Providers: Nadeem Castillo ; Vernell Loja Other Interventions: Discharge Summary Assessment (RN) Last Done: 07/05/21 12:20 Supervising Physician Co-Signing Physician Notes I personally examined the patient and verified all sánchez points of history and exam, discussed case, and agree with decision making with Dr Jennings feeling OK to go. vitals noted nad heent nc at mmm chin w bandage no surrounding erythema, no swelling/lesions in mouth/under tongue notable. breathing unlabored no accessory muscles good effort skin no rashes no pallor or icterus onel's angina -stable for home on augmentin. outpt ENT f/u. otherwise as above Resident Activity Tracking Resident Involvement: Resident Care Provided Care Provided: Adult Hospital Medicine
--- NOTE | 2021-07-05 18:31 | Billing Data ---
Date of Service July 05, 2021 Coding Level of Care Code D/C DAY MANAGEMENT <30 MINS
[2021-07-06] MEDS ORDERED: methylPREDNISolone 4 MG TAB PO SCH (07:00)
[2021-07-07] MEDS ORDERED: methylPREDNISolone 4 MG TAB PO SCH (07:00)
== END 2021-07-05 14:45 | DRG 138 ==
LOC: ED 13:54 → 2S 22:48 → OR 22:48 → 2S 22:49 → SUATTDRO 22:50 → 3E 07-04 10:17